=== PATIENT | female | born 1935 | race Caucasian/White ===

== ENCOUNTER 2022-07-15 18:22 | Inpatient (IN) ==
[2022-07-15 19:40] LABS: Basophils # 0.1 K/mcL (0.0-0.2); Basophils % 0.5 %; Eosinophils # 0.1 K/mcL (0.0-0.6); Eosinophils % 1.2 %; Hemoglobin 13.6 g/dL (11.5-15.4); Immature Granulocytes % 0.7 % (0-4); Lymphocytes # 2.9 K/mcL (0.6-4.6); Lymphocytes % 26.3 %; Mean Corpuscular HGB Conc 33.2 g/dL (31.6-35.5); Mean Corpuscular Hemoglobin 30.3 pg (28.0-33.3); Mean Corpuscular Volume 91.3 fL (83.0-100.0); Monocytes # 0.7 K/mcL (0.0-1.3); Monocytes % 6.2 %; Neutrophils # 7.1 K/mcL (1.6-8.9); Platelet Count 248 K/mcL (140-400); Red Blood Count 4.49 M/mcL (3.82-4.97); Segmented Neutrophils % 65.1 %
[2022-07-15 19:53] LABS: INR 1.1; Prothrombin Time 12.4 Seconds (9.4-12.1)
[2022-07-15 19:55] LABS: Activated Partial Thrombo Time 25.9 Seconds (26.0-36.0)
[2022-07-15 19:58] LABS: BUN/Creatinine Ratio 25 (6-26); Blood Urea Nitrogen 26 mg/dL (8-23); Calcium 9.4 mg/dL (8.6-10.3); Carbon Dioxide 29 mEq/L (23-29); Chloride 98 mEq/L (98-107); Glucose 167 mg/dL (70-105); Osmolality,Calculated 291 (280-300); Potassium 4.5 mEq/L (3.5-5.1); Sodium 136 mEq/L (136-145)
[2022-07-15 20:42] LABS: Troponin I < 0.03 ng/mL (< 0.04)
[2022-07-15] MEDS ORDERED: *HR* LORazepam 2 MG/ML VIAL IVP ONE (20:46)
[2022-07-15] MEDS ORDERED: Acetaminophen 325 MG TABLET PO PRN (20:48)
[2022-07-15] MEDS ORDERED: Ondansetron 4 MG/2 ML VIAL IVP PRN (20:48)
[2022-07-15] MEDS ORDERED: Naloxone 0.4 MG/ML INJ IVP PRN (20:48)
[2022-07-15] MEDS ORDERED: *HR* Dextrose 50 % in Water (Syg) 50 ML SYRINGE IVP PRN (21:35)
[2022-07-15] MEDS ORDERED: D5% in Water 1,000 ML IVC PRN (21:35)
[2022-07-15] MEDS ORDERED: Dextrose Gel 15 GM/37.5 ML TUBE PO PRN ×2 (21:35)
[2022-07-15] MEDS: Insulin LISPRO 300 UNITS/3 ML VIAL SUBQ SCH ×2 (22:35→23:29)
[2022-07-15] MEDS ORDERED: *HR* HYDROcodone/Acet 5/325 mg TABLET PO PRN (22:56)
[2022-07-15] MEDS ORDERED: Ketorolac 30 MG/ML VIAL IVP ONE (23:09)
[2022-07-15] MEDS: QUEtiapine Fumarate 25 MG TABLET PO SCH (23:17)
[2022-07-15 23:22] LABS: Bacteria,Urine Few per hpf (None-Few); Bilirubin,Urine Negative (Negative); Blood,Urine Negative (Negative); Clarity,Urine Turbid (Clear); Color,Urine Yellow (Yellow); Glucose,Urine (UA) Normal (Normal); Hyaline Casts,Urine Few per lpf (None Seen); Ketones,Urine 10 mg/dL (Negative); Leukocyte Esterase,Urine Large (Negative); Mucus,Urine Few per lpf (None-Few); Nitrite,Urine Negative (Negative); PH,Urine 8.5 pH Units (5.0-8.0); Protein,Urine 30 mg/dL (Neg-Trace); Specific Gravity,Urine 1.017 (1.010-1.025); Urobilinogen,Urine Normal (Normal); WBC,Urine TNTC per hpf (0-3)
[2022-07-16 00:15] LABS: Adenovirus Not Detected (Not Detect); Bordetella Pertussis Not Detected (Not Detect); Chlamydophila pneumoniae Not Detected (Not Detect); Coronavirus 229E Not Detected (Not Detect); Coronavirus HKU1 Not Detected (Not Detect); Coronavirus NL63 Not Detected (Not Detect); Coronavirus OC43 Not Detected (Not Detect); Human Metapneumovirus Not Detected (Not Detect); Human Rhinovirus/Enterovirus Not Detected (Not Detect); Influenza A Subtype 2009 H1 Not Detected (Not Detect); Influenza B Not Detected (Not Detect); Mycoplasma pneumoniae Not Detected (Not Detect); Parainfluenza Virus 1 Not Detected (Not Detect); Parainfluenza Virus 2 Not Detected (Not Detect); Parainfluenza Virus 3 Not Detected (Not Detect); Parainfluenza Virus 4 Not Detected (Not Detect); Respiratory Syncytial Virus Not Detected (Not Detect)
[2022-07-16 00:17] LABS: SARS-CoV-2 DETECTED (Not Detect)
[2022-07-16] MEDS ORDERED: cefTRIAXone 1,000 MG in 0.9 % Sodium Chloride Mini Bag 100 ML IVPB SCH (01:19)
[2022-07-16] MEDS: Insulin LISPRO 300 UNITS/3 ML VIAL SUBQ SCH ×3 (06:00→20:17)
[2022-07-16] MEDS: Ketorolac 30 MG/ML VIAL IVP PRN ×2 (06:42→11:48)
[2022-07-16] MEDS: Furosemide 40 MG TABLET PO SCH (09:06)
[2022-07-16] MEDS: QUEtiapine Fumarate 25 MG TABLET PO SCH ×2 (09:06→20:28)
[2022-07-16] MEDS: Haloperidol Lactate 5 MG/ML VIAL IVP ONE ×2 (09:33→10:47)
[2022-07-16] MEDS ORDERED: *HR* LORazepam 2 MG/ML VIAL IVP PRN (11:40)
[2022-07-16] MEDS ORDERED: Ipratropium/Albuterol Neb 3 ML IH PRN (12:28)
[2022-07-16] MEDS: *HR* Heparin 5,000 UNIT/ML VIAL SQ SCH ×2 (14:53→23:13)
[2022-07-16] MEDS: Gabapentin 100 MG CAPSULE PO SCH ×2 (15:01→20:28)
[2022-07-16] MEDS: Divalproex (12 HR) 250 MG TABLET PO SCH (20:28)
[2022-07-16] MEDS: Melatonin 3 MG TABLET PO SCH (20:28)
[2022-07-16] MEDS: MOM Conc 10 ML UD.LIQ PO SCH (20:37)
[2022-07-17] MEDS: Insulin LISPRO 300 UNITS/3 ML VIAL SUBQ SCH ×5 (00:34→21:23)
[2022-07-17] MEDS: *HR* Heparin 5,000 UNIT/ML VIAL SQ SCH ×3 (05:19→20:23)
[2022-07-17 05:43] LABS: Basophils % 0.2 %; Eosinophils # 0.2 K/mcL (0.0-0.6); Eosinophils % 1.8 %; Hematocrit 35.2 % (35.3-44.9); Immature Granulocytes % 0.6 % (0-4); Lymphocytes # 2.1 K/mcL (0.6-4.6); Lymphocytes % 20.2 %; Mean Corpuscular HGB Conc 34.1 g/dL (31.6-35.5); Mean Corpuscular Hemoglobin 30.8 pg (28.0-33.3); Mean Corpuscular Volume 90.5 fL (83.0-100.0); Mean Platelet Volume 10.1 fL (9.4-12.4); Monocytes # 0.6 K/mcL (0.0-1.3); Monocytes % 5.7 %; Neutrophils # 7.4 K/mcL (1.6-8.9); Platelet Count 138 K/mcL (140-400); Red Blood Count 3.89 M/mcL (3.82-4.97); Red Cell Distribution Width 13.2 % (11.5-14.5); Segmented Neutrophils % 71.5 %; White Blood Count 10.4 K/mcL (4.3-11.1)
[2022-07-17 06:04] LABS: Calcium 8.6 mg/dL (8.6-10.3); Magnesium 2.2 mg/dL (1.6-2.6); Phosphorous 4.2 mg/dL (2.7-4.5); Potassium 3.9 mEq/L (3.5-5.1)
[2022-07-17] MEDS ORDERED: *HR* FentaNYL (PF) 100 MCG/2 ML VIAL ONE ×2 (06:38→09:47)
[2022-07-17] MEDS ORDERED: *HR* Propofol 200 MG/20 ML VIAL IVP ONE (06:38)
[2022-07-17] MEDS ORDERED: Ropivacaine/PF 0.5% 30 ML VIAL ONE (07:00)
[2022-07-17] MEDS ORDERED: Famotidine 20 MG/2 ML VIAL IVP ONE (07:18)
[2022-07-17] MEDS ORDERED: Acetaminophen IV 1,000 MG/100 ML BAG IVPB ONE (09:38)
[2022-07-17] MEDS ORDERED: *HR* Rocuronium Bromide 50 MG/5 ML VIAL ONE (09:38)
[2022-07-17] MEDS ORDERED: *HR* Phenylephrine 10 MG/ML VIAL ONE (09:38)
[2022-07-17] MEDS ORDERED: Albumin Human 5% 12.5 GM/250 ML IV.SOLN ONE (10:23)
[2022-07-17] MEDS ORDERED: Ondansetron 4 MG/2 ML VIAL ONE (10:30)
[2022-07-17] MEDS: Furosemide 40 MG TABLET PO SCH (13:00)
[2022-07-17] MEDS: Gabapentin 100 MG CAPSULE PO SCH ×4 (13:00→20:22)
[2022-07-17] MEDS: Cholecalciferol (D-3) 1,000 UNIT (25MCG) TABLET PO SCH (13:00)
[2022-07-17] MEDS: MOM Conc 10 ML UD.LIQ PO SCH ×2 (13:00→20:22)
[2022-07-17] MEDS: Aspirin 81 MG TAB.CHEW PO SCH (13:01)
[2022-07-17] MEDS: QUEtiapine Fumarate 25 MG TABLET PO SCH ×2 (13:24→20:22)
[2022-07-17] MEDS: Divalproex Sodium 125 MG Sprinkle Capsule (DR) PO SCH (13:24)
[2022-07-17] MEDS: CeFAZolin 2 GM/120 ML BAG IVPB SCH ×2 (16:07→23:09)
[2022-07-17] MEDS: Sennosides/Docusate Sodium TABLET PO ONE ×2 (18:04→18:25)
[2022-07-17] MEDS: Divalproex (12 HR) 250 MG TABLET PO SCH (20:21)
[2022-07-17] MEDS: Melatonin 3 MG TABLET PO SCH (20:22)
[2022-07-17] MEDS ORDERED: Insulin LISPRO 300 UNITS/3 ML VIAL SUBQ SCH (21:00)
[2022-07-18 04:59] LABS: Basophils % 0.1 %; Eosinophils % 0.1 %; Hematocrit 24.6 % (35.3-44.9); Hemoglobin 8.2 g/dL (11.5-15.4); Immature Granulocytes % 0.6 % (0-4); Lymphocytes # 2.5 K/mcL (0.6-4.6); Lymphocytes % 17.8 %; Mean Corpuscular HGB Conc 33.3 g/dL (31.6-35.5); Mean Corpuscular Hemoglobin 31.2 pg (28.0-33.3); Mean Corpuscular Volume 93.5 fL (83.0-100.0); Mean Platelet Volume 10.6 fL (9.4-12.4); Monocytes # 1.1 K/mcL (0.0-1.3); Monocytes % 8.1 %; Neutrophils # 10.4 K/mcL (1.6-8.9); Platelet Count 156 K/mcL (140-400); Red Blood Count 2.63 M/mcL (3.82-4.97); Segmented Neutrophils % 73.3 %; White Blood Count 14.2 K/mcL (4.3-11.1)
[2022-07-18 05:12] LABS: Calcium 8.3 mg/dL (8.6-10.3); Potassium 3.8 mEq/L (3.5-5.1)
[2022-07-18] MEDS: *HR* Heparin 5,000 UNIT/ML VIAL SQ SCH ×2 (05:19→15:09)
[2022-07-18] MEDS: Insulin LISPRO 300 UNITS/3 ML VIAL SUBQ SCH ×3 (09:05→16:50)
[2022-07-18] MEDS: Aspirin 81 MG TAB.CHEW PO SCH (09:07)
[2022-07-18] MEDS: Cholecalciferol (D-3) 1,000 UNIT (25MCG) TABLET PO SCH (09:08)
[2022-07-18] MEDS: QUEtiapine Fumarate 25 MG TABLET PO SCH ×2 (09:08→21:21)
[2022-07-18] MEDS: Gabapentin 100 MG CAPSULE PO SCH ×3 (09:08→21:20)
[2022-07-18] MEDS: Divalproex Sodium 125 MG Sprinkle Capsule (DR) PO SCH (09:08)
[2022-07-18] MEDS: MOM Conc 10 ML UD.LIQ PO SCH ×2 (09:08→21:21)
[2022-07-18] MEDS: Furosemide 40 MG TABLET PO SCH (09:08)
[2022-07-18] MEDS ORDERED: Methylnaltrexone 12 MG/0.6 ML SYRINGE SQ ONE (11:00)
[2022-07-18] MEDS: Divalproex (12 HR) 250 MG TABLET PO SCH (21:20)
[2022-07-18] MEDS: Melatonin 3 MG TABLET PO SCH (21:20)
[2022-07-19] MEDS: *HR* Heparin 5,000 UNIT/ML VIAL SQ SCH ×3 (00:39→12:37)
[2022-07-19] MEDS: Insulin LISPRO 300 UNITS/3 ML VIAL SUBQ SCH ×5 (02:33→21:30)
[2022-07-19 06:19] LABS: Basophils % 0.2 %; Eosinophils # 0.2 K/mcL (0.0-0.6); Eosinophils % 1.7 %; Hematocrit 24.6 % (35.3-44.9); Hemoglobin 8.1 g/dL (11.5-15.4); Immature Granulocytes % 0.4 % (0-4); Lymphocytes # 2.3 K/mcL (0.6-4.6); Lymphocytes % 25.4 %; Mean Corpuscular HGB Conc 32.9 g/dL (31.6-35.5); Mean Corpuscular Volume 94.3 fL (83.0-100.0); Mean Platelet Volume 10.5 fL (9.4-12.4); Monocytes % 10.7 %; Neutrophils # 5.5 K/mcL (1.6-8.9); Platelet Count 172 K/mcL (140-400); Red Blood Count 2.61 M/mcL (3.82-4.97); Red Cell Distribution Width 13.2 % (11.5-14.5); Segmented Neutrophils % 61.6 %
[2022-07-19 06:41] LABS: Calcium 8.4 mg/dL (8.6-10.3); Potassium 3.9 mEq/L (3.5-5.1)
[2022-07-19] MEDS: Haloperidol Lactate 5 MG/ML VIAL IVP PRN ×2 (06:58→19:56)
[2022-07-19] MEDS: Ketorolac 30 MG/ML VIAL IVP PRN (12:35)
[2022-07-19] MEDS: Divalproex Sodium 125 MG Sprinkle Capsule (DR) PO SCH (12:36)
[2022-07-19] MEDS: Aspirin 81 MG TAB.CHEW PO SCH (12:36)
[2022-07-19] MEDS: QUEtiapine Fumarate 25 MG TABLET PO SCH (12:37)
[2022-07-19] MEDS: MOM Conc 10 ML UD.LIQ PO SCH (12:37)
[2022-07-19] MEDS: Gabapentin 100 MG CAPSULE PO SCH ×2 (12:37→16:04)
[2022-07-19] MEDS: Cholecalciferol (D-3) 1,000 UNIT (25MCG) TABLET PO SCH (12:37)
[2022-07-19] MEDS: Furosemide 40 MG TABLET PO SCH (12:37)
[2022-07-20] MEDS: Divalproex (12 HR) 250 MG TABLET PO SCH ×2 (00:30→21:50)
[2022-07-20] MEDS: *HR* Heparin 5,000 UNIT/ML VIAL SQ SCH ×2 (00:31→06:10)
[2022-07-20] MEDS: Melatonin 3 MG TABLET PO SCH ×2 (00:31→21:50)
[2022-07-20] MEDS: Gabapentin 100 MG CAPSULE PO SCH ×4 (00:31→21:50)
[2022-07-20] MEDS: QUEtiapine Fumarate 25 MG TABLET PO SCH ×3 (00:31→21:50)
[2022-07-20] MEDS: MOM Conc 10 ML UD.LIQ PO SCH ×3 (00:31→21:50)
[2022-07-20 06:17] LABS: Basophils % 0.3 %; Eosinophils # 0.2 K/mcL (0.0-0.6); Eosinophils % 2.6 %; Hematocrit 23.4 % (35.3-44.9); Hemoglobin 7.6 g/dL (11.5-15.4); Immature Granulocytes % 0.4 % (0-4); Lymphocytes # 1.7 K/mcL (0.6-4.6); Lymphocytes % 24.8 %; Mean Corpuscular HGB Conc 32.5 g/dL (31.6-35.5); Mean Corpuscular Hemoglobin 30.5 pg (28.0-33.3); Mean Platelet Volume 10.3 fL (9.4-12.4); Monocytes # 0.7 K/mcL (0.0-1.3); Monocytes % 9.5 %; Neutrophils # 4.4 K/mcL (1.6-8.9); Platelet Count 186 K/mcL (140-400); Red Blood Count 2.49 M/mcL (3.82-4.97); Red Cell Distribution Width 13.1 % (11.5-14.5); Segmented Neutrophils % 62.4 %
[2022-07-20 06:32] LABS: BUN/Creatinine Ratio 27 (6-26); Blood Urea Nitrogen 14 mg/dL (8-23); Calcium 8.2 mg/dL (8.6-10.3); Carbon Dioxide 25 mEq/L (23-29); Chloride 104 mEq/L (98-107); Glucose 204 mg/dL (70-105); Osmolality,Calculated 288 (280-300); Potassium 3.6 mEq/L (3.5-5.1); Sodium 136 mEq/L (136-145)
[2022-07-20] MEDS: Divalproex Sodium 125 MG Sprinkle Capsule (DR) PO SCH (07:58)
[2022-07-20] MEDS: Insulin LISPRO 300 UNITS/3 ML VIAL SUBQ SCH ×4 (08:06→21:50)
[2022-07-20] MEDS: Aspirin 81 MG TAB.CHEW PO SCH (08:16)
[2022-07-20] MEDS: Furosemide 40 MG TABLET PO SCH (08:17)
[2022-07-20] MEDS: Cholecalciferol (D-3) 1,000 UNIT (25MCG) TABLET PO SCH (09:20)
[2022-07-20] MEDS: Sennosides/Docusate Sodium TABLET PO SCH (15:31)
[2022-07-21 04:49] LABS: Basophils % 0.3 %; Eosinophils # 0.2 K/mcL (0.0-0.6); Eosinophils % 2.4 %; Hematocrit 24.6 % (35.3-44.9); Immature Granulocytes % 0.5 % (0-4); Lymphocytes % 25.2 %; Mean Corpuscular HGB Conc 32.5 g/dL (31.6-35.5); Mean Corpuscular Hemoglobin 30.7 pg (28.0-33.3); Mean Corpuscular Volume 94.3 fL (83.0-100.0); Monocytes # 0.6 K/mcL (0.0-1.3); Monocytes % 8.1 %; Platelet Count 243 K/mcL (140-400); Red Blood Count 2.61 M/mcL (3.82-4.97); Red Cell Distribution Width 13.3 % (11.5-14.5); Segmented Neutrophils % 63.5 %; White Blood Count 7.8 K/mcL (4.3-11.1)
[2022-07-21 05:19] LABS: BUN/Creatinine Ratio 24 (6-26); Blood Urea Nitrogen 13 mg/dL (8-23); Calcium 8.5 mg/dL (8.6-10.3); Carbon Dioxide 25 mEq/L (23-29); Chloride 103 mEq/L (98-107); Glucose 197 mg/dL (70-105); Osmolality,Calculated 286 (280-300); Potassium 3.7 mEq/L (3.5-5.1); Sodium 135 mEq/L (136-145)
[2022-07-21] MEDS ORDERED: *HR* Enoxaparin 40 MG/0.4 ML SYRINGE SQ SCH (09:00)
[2022-07-21] MEDS: Insulin LISPRO 300 UNITS/3 ML VIAL SUBQ SCH ×4 (09:15→21:26)
[2022-07-21] MEDS: Furosemide 40 MG TABLET PO SCH (10:43)
[2022-07-21] MEDS: Cholecalciferol (D-3) 1,000 UNIT (25MCG) TABLET PO SCH (10:43)
[2022-07-21] MEDS: Sennosides/Docusate Sodium TABLET PO SCH (10:43)
[2022-07-21] MEDS: Gabapentin 100 MG CAPSULE PO SCH ×3 (10:43→21:26)
[2022-07-21] MEDS: Aspirin 81 MG TAB.CHEW PO SCH (10:43)
[2022-07-21] MEDS: QUEtiapine Fumarate 25 MG TABLET PO SCH ×2 (10:43→21:26)
[2022-07-21] MEDS: MOM Conc 10 ML UD.LIQ PO SCH ×2 (10:44→21:26)
[2022-07-21] MEDS: Divalproex Sodium 125 MG Sprinkle Capsule (DR) PO SCH (11:17)
[2022-07-21] MEDS ORDERED: Milk and Molasses Enema 200 ML RC ONE (12:48)
[2022-07-21] MEDS: Divalproex (12 HR) 250 MG TABLET PO SCH (21:26)
[2022-07-21] MEDS: Melatonin 3 MG TABLET PO SCH (21:26)
[2022-07-21 23:47] VITALS: BP 140/66; PULSE 100; TEMP 97.6; O2SAT 99
== END 2022-07-22 01:16 | DRG 521 ==
LOC: EMEROOARM 18:22 → 2ANU 18:22 → SUATTDRO 20:54 → 2ANU 21:54 → SUATTDRO 07-16 13:54 → 4WAOSI 07-16 17:14
PROVIDERS: ADMIT Internal Medicine; ATTEND Student in an Organized Health Care Education/Training Program